=== PATIENT | male | born 1955 | race Caucasian/White ===

== ENCOUNTER 2018-02-16 22:01 | Emergency (ER) | payer MEDICARE, OTHER ==
[~2018-02-16 22:01] MED LIST: EPINEPHrine 10 ML SYRINGE (0.1 MG/ML) ONE; SODIUM BICARB 8.4% 50 ML SYR (1 MEQ/ML) ONE
[2018-02-16 22:27] LABS: Glucose,Whole Blood 144 mg/dL (75-99)
--- NOTE | 2018-02-16 23:15 | ED ---
CPR HPI - General Chief Complaint: Cardiac Arrest/CPR Stated Complaint: Cardiac Arrest Time Seen by Provider: 02/16/18 22:40 Source: family, EMS, RN notes reviewed, old records reviewed Mode of arrival: EMS Limitations: language barrier, altered mental status, physical limitation - History of Present Illness Initial Comments: This is a 62-year-old male to the ER for evaluation, patient's brought in by EMS secondary to cardiopulmonary arrest. Patient currently is high-quality CPR. Per story and family patient was having difficulty on today with diaphoresis and shortness of breath, noticed patient go to the ground and be stopped breathing, became blue, had no pulse. She did start CPR EMS had are today been called as he recalled the hospital shortness of breath. EMS arrived and found patient down with no pulse, they did apply AED showing V. fib the A. fib was defibrillated and patient was asystolic, and abated CPR was started patient was brought to emergency room MD Complaint: stopped breathing, collapsed during activity -: minute(s) (40) Place: home Bystander CPR Performed: Yes AED Applied by Bystander/Superintendent Nonselling: Yes Shock Advised: Yes Number of Shocks Delivered: 1 Downtime Before ACLS Arrival (mins): 1 Initial Findings in the Field: unresponsive, no respirations, no pulse, VTACH/ VFIB ROSC in the Field: No Associated Injuries: No Associated Symptoms: shortness of breath, dizziness/weakness, sweating Treatments Prior to Arrival: intubation, chest compressions, defibrillated shocks #, epinephrine mgs # Review of Systems ROS Statement: Those systems with pertinent positive or pertinent negative responses have been documented in the HPI. ROS Other: All systems not noted in ROS Statement are negative. Past Medical History Past Medical History: Unable to Obtain History of Any Multi-Drug Resistant Organisms: Unobtainable Past Surgical History: Unable to Obtain Past Psychological History: Unable to Obtain Smoking Status: Unknown if ever smoked Past Alcohol Use History: Unable to Obtain Past Drug Use History: Unable to Obtain General Exam Limitations: language barrier, altered mental status, physical limitation General appearance: obtunded, in distress Head exam: Present: atraumatic, normocephalic, normal inspection Eye exam: Present: normal appearance, other (fixed and dilated pupils). Absent : scleral icterus, conjunctival injection, periorbital swelling ENT exam: Present: normal exam, mucous membranes moist Neck exam: Present: normal inspection. Absent: tenderness, meningismus, lymphadenopathy Respiratory exam: Absent: respiratory distress, wheezes, rales, rhonchi, stridor Cardiovascular Exam: Present: other (asystole). Absent: systolic murmur, diastolic murmur, rubs, gallop, clicks GI/Abdominal exam: Present: soft. Absent: distended, tenderness, guarding, rebound, rigid Extremities exam: Absent: tenderness, pedal edema, joint swelling, calf tenderness Skin exam: Present: cyanosis, pallor, mottled. Absent: rash Course - Reevaluation(s) Reevaluation #1: 02/16/18 23:12 spoke with family at length aware patient's passing, questions are answered Reevaluation #2: 02/16/18 23:13 Spoke with medical coding auditor patient has no family physician Medical Decision Making - Medical Decision Making 62 male the ER for evaluation presents with found down, CPR CPA, patient not been feeling well for a week and had a witnessed arrest earlier today, patient high-quality ACLS and CPR almost immediately, no review of spontaneous circulation was able to be achieved, patient cardiac standstill on ultrasound with pupils being fixed and dilated, patient was pronounced at 2154 - Lab Data Lab Results 02/16/18 Range/Units 22:06 POC Glucose (mg/dL) 144 H (75-99) mg/dL POC Glu Motion Picture Commentator ID Elly Wallace Critical Care Time Critical Care Time: Yes Total Critical Care Time: 31 Disposition Clinical Impression: Cardiac arrest, Acute myocardial infarction, Cardiopulmonary arrest Disposition: Is patient prescribed a controlled substance at d/c from ED?: No Referrals: None,Stated [Primary Care Provider] - 1-2 days Preliminary Cause of : CPA
== END 2018-02-17 01:32 | disposition expired ==
LOC: EC 22:01
DX: I46.9 Cardiac arrest, cause unspecified (principal); I21.9 Acute myocardial infarction, unspecified
CPT/HCPCS: 36415; 92950; 99291